=== PATIENT | male | born 1970 | race Hispanic/Latino ===

== ENCOUNTER 2017-08-21 19:18 | Emergency (ER) | payer SELFPAY ==
--- NOTE | 2017-08-21 21:05 | ED PDOC ---
Arrival/HPI - General Time Seen by Provider: 08/21/17 21:01 Historian: Patient - History of Present Illness Narrative History of Present Illness (Text): 08/21/17 21:02 47yo male with no PMHx who present with complaint of nonhealing abscess x 2months. States the last time he took antibiotics was 2weeks ago. He states it drains everytime he takes a hot bath and it drained this morning. He denies fever, chills, pain to the area, any other complaint. Past Medical History - Provider Review Nursing Documentation Reviewed: Yes Family/Social History - Physician Review Nursing Documentation Reviewed: Yes Family/Social History: Unknown Family HX Review of Systems - Physician Review All systems were reviewed & negative as marked: Yes - Review of Systems Constitutional: Normal Eyes: Normal ENT: Normal Respiratory: Normal Cardiovascular: Normal Gastrointestinal: Normal Genitourinary Male: Normal Musculoskeletal: Normal Skin: Skin Lesions Neurological: Normal Endocrine: Normal Hemo/Lymphatic: Normal Psychiatric: Normal Physical Exam Vital Signs Reviewed: Yes Temperature: Afebrile Blood Pressure: Normal Pulse: Regular Respiratory Rate: Normal Appearance: Positive for: Well-Appearing, Non-Toxic, Comfortable Pain Distress: None Mental Status: Positive for: Alert and Oriented X 3 - Systems Exam Head: Present: Atraumatic, Normocephalic Pupils: Present: PERRL Extroacular Muscles: Present: EOMI Conjunctiva: Present: Normal Mouth: Present: Moist Mucous Membranes Neck: Present: Normal Range of Motion Respiratory/Chest: Present: Clear to Auscultation, Good Air Exchange. No: Respiratory Distress, Accessory Muscle Use Cardiovascular: Present: Regular Rate and Rhythm, Normal S1, S2. No: Murmurs Abdomen: Present: Normal Bowel Sounds. No: Tenderness, Distention, Peritoneal Signs Back: Present: Normal Inspection Upper Extremity: Present: Normal Inspection. No: Cyanosis, Edema Lower Extremity: Present: Normal Inspection. No: Edema Neurological: Present: GCS=15, CN II-XII Intact, Speech Normal Skin: Present: Warm, Dry, Normal Color, Other (Healed wound noted to left lower abdominal wall. No sorrounding erythema. No tenderness. No discharge. No otehr complaint.). No: Rashes Psychiatric: Present: Alert, Oriented x 3, Normal Insight, Normal Concentration Disposition/Present on Arrival - Present on Arrival Any Indicators Present on Arrival: No History of DVT/PE: No History of Uncontrolled Diabetes: No Urinary Catheter: No History of Decub. Ulcer: No History Surgical Site Infection Following: None - Disposition Have Diagnosis and Disposition been Completed?: Yes Diagnosis: Wound of skin Disposition: HOME/ ROUTINE Disposition Time: 21:10 Patient Plan: Discharge Condition: STABLE Discharge Instructions (ExitCare): Chronic Wound Care (ED) Additional Instructions: Follow up with your doctor Return to ED for any new or worsening symptoms Referrals: Trice Mills MD [Non-Staff] - Follow up with primary All Montoya MD [Staff Provider] - Follow up with primary Forms: WORK NOTE
[2017-08-21 21:22] VITALS: BMI 41.3
[2017-08-21 21:27] VITALS: RESP 18; TEMP 98.4
[2017-08-21 21:28] VITALS: BP 142/84; PULSE 88; O2SAT 100
== END 2017-08-21 22:30 | disposition home or self-care (01) ==
LOC: ED 19:18
DX: L08.9 Local infection of the skin and subcutaneous tissue, unspecified (principal)